=== PATIENT | female | born 1990 | race Caucasian/White ===

== ENCOUNTER 2016-12-10 16:21 | Emergency (ER) | payer OTHER ==
[~2016-12-10] VITALS: Ht 157.5 cm; Wt 68.9 kg
[2016-12-10 16:21] VITALS: BP 113/70
--- NOTE | 2016-12-10 16:55 | NUR ---
PT. VERBALIZED UNDERSTANDING OF AFTERCARE INSTRUCTIONS.[facility] discharged to custody [facility] in [facility]. Written and verbal after care instructions given. Patient verbalizes understanding of instruction.
== END 2016-12-10 16:56 ==
LOC: ER 16:25
DX: F11.10 Opioid abuse, uncomplicated (principal)
CPT/HCPCS: A4606; Z7610

== ENCOUNTER 2016-12-13 13:41 | Emergency (ER) | payer OTHER ==
[~2016-12-13] VITALS: Ht 165.1 cm; Wt 65.8 kg
--- NOTE | 2016-12-13 13:45 | NUR ---
AAOX3, BBRA39/FELTON FROM [facility]: GLF, C/O HEADACHE. NO VISIBLE TRAUMA, WITNESSED BY CELLMATE. POSSIBLE SEIZURE. SKIN IS WARM AND DRY. PLACED ON MONITOR. WILL CONTINUOUSLY MONITOR THE PATIENT. AWAITING MD FOR EVAL.
[2016-12-13] MEDS ORDERED: LORAZEPAM INJ 2 MG/ML VIAL IVP ONE (14:30)
[2016-12-13] MEDS ORDERED: IV NS 0.9% 1,000 ML BAG IV ONE (14:30)
[2016-12-13 14:39] LABS: BASOPHILS # (AUTO) 0.1 /CMM (0.0-0.2); BASOPHILS % (AUTO) 0.4 % (0.0-2.0); EOSINOPHILS % (AUTO) 0.1 % (0.0-6.0); HEMATOCRIT 38 % (33-45); HEMOGLOBIN 12.3 g/dL (11.5-14.8); LYMPHOCYTES # (AUTO) 2.3 /CMM (0.8-4.8); LYMPHOCYTES % (AUTO) 15.8 % (20.0-44.0); MEAN CORPUSCULAR HEMOGLOBIN 25 PG (26.0-33.0); MEAN CORPUSCULAR HGB CONC 32 g/dl (31.0-36.0); MEAN CORPUSCULAR VOLUME 78 fL (82-100); MONOCYTES % (AUTO) 6.6 % (2.0-12.0); NEUTROPHILS # (AUTO) 11.1 /CMM (1.8-8.9); NEUTROPHILS % (AUTO) 77.1 % (43.0-81.0); PLATELET COUNT (AUTO) 572 /CMM (150-450); RDW COEFFICIENT OF VARIATION 17.4 (11.5-15.0); RED BLOOD CELL COUNT(AUTO) 4.87 MIL/uL (4.0-5.2); WHITE BLOOD COUNT (AUTO) 14.5 K/uL (4.3-11.0)
[2016-12-13 14:48] LABS: CALCIUM, SERUM 9.2 mg/dL (8.5-10.1); CREATININE 0.7 mg/dL (0.6-1.3); POTASSIUM 3.5 mmol/L (3.5-5.1)
[2016-12-13] MEDS ORDERED: LORAZEPAM 1 MG TABLET ONE (15:15)
[2016-12-13] MEDS ORDERED: IV NS 0.9% 1,000 ML ONE (15:22)
[2016-12-13] MEDS ORDERED: IV SET PRIMARY 1 EA INFUS.SET MC ONE (15:22)
[2016-12-13] MEDS ORDERED: LORAZEPAM 1 MG TABLET PO ONE (15:30)
--- NOTE | 2016-12-13 16:59 | NUR ---
RIGHT UPPER ARM MIDLINE REMOVED, CATHETER TIP INTACT, PRESSURE DRESSING APPLIED,PIV SITE BENIGN
--- NOTE | 2016-12-13 17:07 | NUR ---
Patient discharged to [employer] CUSTODY in stable condition. Written and verbal after care instructions given. Patient verbalizes understanding of instruction.
[2016-12-13 17:09] VITALS: BP 125/70
== END 2016-12-13 17:10 ==
LOC: ER 13:44
DX: F13.239 Sedative, hypnotic or anxiolytic dependence with withdrawal, unspecified (principal); R56.9 Unspecified convulsions
CPT/HCPCS: 36415; 80048; 85025; 96360; 99284; A4606; J7030; Z7610

== ENCOUNTER 2018-08-26 07:59 | Emergency (ER) | payer SELFPAY ==
[~2018-08-26] VITALS: Ht 160 cm; Wt 66.7 kg
--- NOTE | 2018-08-26 08:05 | NUR ---
DIA RA 39 [employer] custody (Officer Emmanuel) [phone] For "med clearance Heroin abuse" NO COMPLAINTS. TO ER BED 6, HOOKED TO MONITOR, AWAITING MD WU
--- NOTE | 2018-08-26 08:08 | NUR ---
DR CHAVEZ AT BEDSIDE
[2018-08-26] MEDS ORDERED: LEVETIRACETAM (250 MG) 250 MG TABLET PO ONE ×2 (08:29→08:30)
--- NOTE | 2018-08-26 08:31 | NUR ---
Patient discharged in custody of [employer] in stable condition. Written and verbal after care instructions given. Patient verbalizes understanding of instruction.
[2018-08-26 08:35] VITALS: BP 118/74
== END 2018-08-26 08:36 ==
LOC: ER 08:01
DX: F13.239 Sedative, hypnotic or anxiolytic dependence with withdrawal, unspecified (principal); R56.9 Unspecified convulsions; Z90.49 Acquired absence of other specified parts of digestive tract; Z60.2 Problems related to living alone

== ENCOUNTER 2018-08-26 14:30 | Emergency (ER) | payer SELFPAY ==
--- NOTE | 2018-08-26 14:51 | NUR ---
Multiple calls No response Eloped
== END 2018-08-26 14:51 | disposition home or self-care (01) ==
LOC: ER 14:32
DX: Z53.21 Procedure and treatment not carried out due to patient leaving prior to being seen by health care provider (principal)

== ENCOUNTER 2018-10-03 08:12 | Emergency (ER) | payer OTHER ==
[~2018-10-03] VITALS: Ht 165.1 cm; Wt 66.2 kg
--- NOTE | 2018-10-03 08:17 | NUR ---
PT HUMPHREY, PD, FROM [facility], HAD A SEIZURE SHES WAS ON THE GROUND, PT IS AAOX3, NOT IN RESPIRATORY DISTRESS, V/S STABLE, HOOKED TO MONITOR, KEPT RESTED AND COMFORTABLE, WILL CONTINUE TO MONITOR.
--- NOTE | 2018-10-03 08:20 | NUR ---
SEEN AND EXAMINED BY DR. CARRERO.
[2018-10-03] MEDS ORDERED: LORAZEPAM 1 MG TABLET ONE (08:28)
[2018-10-03] MEDS ORDERED: LEVETIRACETAM (500MG) 1,000 MG in IV NS 0.9% 100 ML IV ONE (08:30)
[2018-10-03] MEDS: LORAZEPAM 1 MG TABLET PO ONE (08:35)
--- NOTE | 2018-10-03 08:35 | NUR ---
DIFFICULTY INSERTING IV LINE DR. CARRERO AWARE.
--- NOTE | 2018-10-03 08:36 | NUR ---
Francis carrion in ED - 10/03/18 at 0839 by MARIBELL PT REFUSED IV LINE INSERTION AND LAB DRAWNED.
--- NOTE | 2018-10-03 08:36 | NUR ---
PT REFUSED IV LINE AND BLOOD TEST. DR. CARRERO AWARE.
[2018-10-03] MEDS: LEVETIRACETAM (250 MG) 250 MG TABLET PO ONE (08:40)
[2018-10-03] MEDS ORDERED: LEVETIRACETAM (250 MG) 250 MG TABLET PO ONE (08:49)
--- NOTE | 2018-10-03 09:46 | NUR ---
ER PHLEB AT BEDSIDE FOR LAB DRAW.
[2018-10-03 10:09] LABS: CALCIUM, SERUM 9.4 mg/dL (8.5-10.1); CARBON DIOXIDE 21 mmol/L (21-32); CHLORIDE 101 mmol/L (98-107); CREATININE 0.5 mg/dL (0.6-1.3); GLUCOSE 94 mg/dL (74-106); POTASSIUM 3.9 mmol/L (3.5-5.1); SODIUM SERUM 134 mmol/L (136-145); UREA NITROGEN, BLOOD 21 mg/dL (7-18)
[2018-10-03 10:10] LABS: ALCOHOL, BLOOD < 3 mg/dL (0-0)
[2018-10-03 10:53] VITALS: BP 129/88
--- NOTE | 2018-10-03 10:53 | NUR ---
Patient discharged to custody in stable condition. Written and verbal after care instructions given. Patient verbalizes understanding of instruction.
== END 2018-10-03 10:55 ==
LOC: ER 08:14
DX: F13.239 Sedative, hypnotic or anxiolytic dependence with withdrawal, unspecified (principal); R56.9 Unspecified convulsions; Z90.49 Acquired absence of other specified parts of digestive tract; Z60.2 Problems related to living alone
CPT/HCPCS: 36415; 80048; 80305; 80307; 99283; A4606; G0480; J1953; J7030

== ENCOUNTER 2018-10-03 15:26 | Emergency (ER) | payer OTHER ==
[~2018-10-03] VITALS: Ht 165.1 cm; Wt 66.2 kg
[2018-10-03] MEDS ORDERED: LEVETIRACETAM (250 MG) 250 MG TABLET PO ONE ×2 (16:50→17:00)
--- NOTE | 2018-10-03 17:11 | NUR ---
[id number], [facility] NOTED SEIZURE, PT WAS HERE THIS MORNING FOR SAME REASON. Rx WAS PROVIDED. PT IS CALM AND COOPERATIVE, AOX4, AMB, VSS. SKIN INTACT, NO ACUTE DISTRESS NOTED. DENIES SOB, DIZZINESS, WEAKNESS, N/V. OFFICERS AT BEDSIDE.
[2018-10-03] MEDS ORDERED: ALPRAZOLAM 0.5 MG TABLET ONE (17:13)
[2018-10-03] MEDS ORDERED: ALPRAZOLAM 0.5 MG TABLET PO ONE (17:30)
--- NOTE | 2018-10-03 18:30 | NUR ---
Patient discharged to home in stable condition. Written and verbal after care instructions given. Patient verbalizes understanding of instruction.
[2018-10-03 20:01] VITALS: BP 131/86
== END 2018-10-03 18:30 ==
LOC: ER 15:28
DX: G40.909 Epilepsy, unspecified, not intractable, without status epilepticus (principal); Z79.891 Long term (current) use of opiate analgesic; Z90.49 Acquired absence of other specified parts of digestive tract; Z60.2 Problems related to living alone
CPT/HCPCS: 82962-TC

== ENCOUNTER 2019-12-14 01:33 | Emergency (ER) | payer MEDICAID, OTHER ==
[~2019-12-14] VITALS: Ht 157.5 cm; Wt 68.0 kg
--- NOTE | 2019-12-14 01:45 | NUR ---
PATIENT CAME TO ER BED 2 C/O RIGHT BUTTOCKS ABCESS FOR 4xDAYS. PATIENT ADMITS TO INJECTING HEROIN INTO SELF. AAOX4. NO SOB. BREATHING EVENLY AND UNLABORED ON ROOM AIR. CONNECTED TO MONITOR.
--- NOTE | 2019-12-14 01:52 | NUR ---
AT BEDSIDE FOR ULTRASOUND.
[2019-12-14] MEDS ORDERED: LIDOCAINE 2% 20 ML MDV ONE (01:58)
--- NOTE | 2019-12-14 02:08 | NUR ---
AT BEDSIDE FOR INCISION AND DRAINAGE.
--- NOTE | 2019-12-14 02:20 | NUR ---
TECH AT BEDSIDE FOR CLEANING.
[2019-12-14] MEDS ORDERED: SULFAMETH/TRIMETH 800/160 MG 1 UDTAB TABLET PO ONE (02:30)
[2019-12-14] MEDS ORDERED: SULFAMETH/TRIMETH 800/160 MG 1 UDTAB TABLET ONE (02:30)
[2019-12-14] MEDS ORDERED: CEPHALEXIN MONOHYDRATE 500 MG CAPSULE PO ONE ×2 (02:30)
[2019-12-14 02:32] VITALS: BP 122/74
--- NOTE | 2019-12-14 02:32 | NUR ---
Patient discharged to home in stable condition. Written and verbal after care instructions given. Patient verbalizes understanding of instruction.
== END 2019-12-14 02:33 | disposition home or self-care (01) ==
LOC: ER 01:44
DX: L02.31 Cutaneous abscess of buttock (principal); F17.200 Nicotine dependence, unspecified, uncomplicated; Z90.49 Acquired absence of other specified parts of digestive tract; Z60.2 Problems related to living alone
CPT/HCPCS: 10060; 99284; A6253; A6403 ×2; J3490

== ENCOUNTER 2019-12-16 07:31 | Emergency (ER) | payer MEDICAID ==
[~2019-12-16] VITALS: Ht 162.6 cm; Wt 68.0 kg
[2019-12-16 07:46] VITALS: BP 133/92
--- NOTE | 2019-12-16 08:08 | NUR ---
Patient discharged to home in stable condition. Written and verbal after care instructions given. Patient verbalizes understanding of instruction.
== END 2019-12-16 08:09 | disposition home or self-care (01) ==
LOC: ER 07:31
DX: L02.31 Cutaneous abscess of buttock (principal); F11.10 Opioid abuse, uncomplicated; F17.200 Nicotine dependence, unspecified, uncomplicated; Z90.49 Acquired absence of other specified parts of digestive tract; Z60.2 Problems related to living alone

== ENCOUNTER 2020-01-30 16:52 | Emergency (ER) | payer MEDICAID ==
--- NOTE | 2020-01-30 17:00 | NUR ---
CALLED IN WAITING ROOM. NO ANSWER.
--- NOTE | 2020-01-30 17:18 | NUR ---
CALLED IN WAITING ROOM. NO ANSWER.
--- NOTE | 2020-01-30 17:37 | NUR ---
called for triage not in the waiting room
== END 2020-01-30 17:40 | disposition left against medical advice (07) ==
LOC: ER 16:53
DX: Z53.21 Procedure and treatment not carried out due to patient leaving prior to being seen by health care provider (principal)